=== PATIENT | male | born 1970 | race Caucasian/White ===

== ENCOUNTER 2020-07-21 12:17 | Emergency (ER) | payer MEDICAID ==
[~2020-07-21] VITALS: Ht 175.3 cm; Wt 93.0 kg
[2020-07-21 13:21] VITALS: BP 134/84
--- NOTE | 2020-07-21 14:39 | NUR ---
Patient wheelchair assisted to [facility]
[2020-07-21] MEDS ORDERED: BACITRACIN OINT 500 UNITS/GM PKT TP ONE (14:55)
[2020-07-21] MEDS ORDERED: ONDANSETRON 4 MG ODT PO ONE (14:55)
[2020-07-21] MEDS ORDERED: HYDROcodone/APAP 7.5/325 MG 1 TAB PO ONE (14:55)
[2020-07-21 15:15] VITALS: BP 134/84
--- NOTE | 2020-07-21 15:15 | NUR ---
Pt presents to ED for right leg recheck. Had surgery and rhonda placed to right leg on 07/11/20. States he wants leg checked and pain medication
--- NOTE | 2020-07-21 15:19 | NUR ---
applied bacitracin and dressing to right leg without any issues. applied splint to right leg as well without any issues
--- NOTE | 2020-07-21 15:25 | NUR ---
Patient discharged with v/s stable. Written and verbal after care instructions given and explained. Patient alert, oriented and verbalized understanding of instructions. Ambulatory with steady gait. All questions addressed prior to discharge. ID band removed. Patient advised to follow up with PMD. Rx of [place] given. Patient educated on indication of medication including possible reaction and side effects. Opportunity to ask questions provided and answered.
== END 2020-07-21 15:15 | disposition home or self-care (01) ==
LOC: MED 12:17
DX: S81.801A Unspecified open wound, right lower leg, initial encounter (principal); E11.9 Type 2 diabetes mellitus without complications; I10 Essential (primary) hypertension; Z88.6 Allergy status to analgesic agent; X58.XXXA Exposure to other specified factors, initial encounter; Y93.89 Activity, other specified; Y92.89 Other specified places as the place of occurrence of the external cause; Y99.8 Other external cause status
CPT/HCPCS: 99284; Q0162

== ENCOUNTER 2022-09-03 16:29 | Emergency (ER) | payer SELFPAY ==
[~2022-09-03] VITALS: Ht 175.3 cm; Wt 87.1 kg
[~2022-09-03 16:29] MED LIST: ACYC400T14 PO; LOSA25TA43 PO; METF-1139 PO; PRED20TA5 PO; TRAM-748 PO
[2022-09-03 17:00] VITALS: BP 151/91
--- NOTE | 2022-09-03 18:39 | NUR ---
PT AMB TO BED 1.
[2022-09-03] MEDS ORDERED: LIDOCAINE MPF 1% 10 MG/ML VIAL INJ ONE (18:40)
--- NOTE | 2022-09-03 19:22 | NUR ---
Patient lying in bed, A/Ox4, chest rise and fall symmetrical, no s/s of distress.
--- NOTE | 2022-09-03 19:29 | NUR ---
Pt report given to MIGDALIA CLEMENS. Transfer of care at this time.
[2022-09-03] MEDS ORDERED: ACETAMINOPHEN EXTRA STRENGTH 500 MG TAB PO ONE (19:35)
[2022-09-03] MEDS ORDERED: CEPH-588 PO (19:43)
[2022-09-03] MEDS ORDERED: BACITRACIN OINT 500 UNITS/GM PKT TP ONE ×2 (19:44→19:45)
--- NOTE | 2022-09-03 19:45 | NUR ---
Patient lying in bed, A/Ox4, chest rise and fall symmetrical, no s/s of distress.
[2022-09-03] MEDS ORDERED: DOXY-690 PO (19:47)
[2022-09-03 20:01] VITALS: BP 132/85
== END 2022-09-03 20:00 | disposition home or self-care (01) ==
LOC: MED 16:29
DX: L02.411 Cutaneous abscess of right axilla (principal); I10 Essential (primary) hypertension; E11.9 Type 2 diabetes mellitus without complications; Z79.1 Long term (current) use of non-steroidal anti-inflammatories (NSAID); Z79.4 Long term (current) use of insulin; Z79.899 Other long term (current) drug therapy
CPT/HCPCS: 10060; 82948; 99283; J2001